=== PATIENT | male | born 1935 | race Caucasian/White ===

== ENCOUNTER 2020-08-16 10:57 | Emergency (ER) | payer MEDICARE ==
[~2020-08-16] VITALS: Ht 185.4 cm; Wt 63.5 kg
[2020-08-16] MEDS ORDERED: PROSCAR 5MG TABL5 M1 PO (11:11)
[2020-08-16] MEDS ORDERED: PLAVIX 75 MG TA75 MG PO (11:11)
[2020-08-16] MEDS ORDERED: ALLOPURINOL 10100 M3 PO (11:11)
[2020-08-16] MEDS ORDERED: BROVANA15 MCG/2 M INH (11:12)
[2020-08-16] MEDS ORDERED: TOPROL XL50 MG PO (11:12)
[2020-08-16] MEDS ORDERED: MICARDIS 80 MG80 MG PO (11:12)
[2020-08-16] MEDS ORDERED: PULMICORT0.5 MG/2 M INH (11:12)
[2020-08-16 11:25] LABS: ABSOLUTE EOSINOPHILS 0.3 thou/uL (0.0-0.7); ABSOLUTE LYMPHOCYTES 1.1 thou/uL (0.8-5.3); ABSOLUTE MONOCYTES 0.9 thou/uL (0.0-1.2); ABSOLUTE NEUTROPHILS 5.5 thou/uL (1.6-8.1); BASOPHILS 0.2 %; EOSINOPHILS 3.5 %; HEMATOCRIT 35.4 % (42.0-52.0); HEMOGLOBIN 11.4 gm/dL (14.0-18.0); LYMPHOCYTES 14.4 %; MCHC 32.3 g/dL (28.0-37.0); MCV 98.9 fL (80.0-100.0); MONOCYTES 11.7 %; MPV 9.4 fl. (7.2-11.1); NUCLEATED RBCS 0 /100WBC; PLATELET COUNT* 283 thou/uL (150-400); POLYS 70.2 %; RBC 3.58 mil/uL (4.50-6.00); RDW-CV 16.3 % (10.5-14.5); WBC 7.8 thou/uL (4.0-11.0)
[2020-08-16 11:31] LABS: CALCIUM 8.4 mg/dL (8.5-10.1); CREATININE 1.3 mg/dL (0.6-1.3); POTASSIUM 4.6 mmol/L (3.5-5.1)
[2020-08-16 11:35] LABS: APTT 28.8 Seconds (25.0-31.3); PROTIME 10.9 Seconds (9.20-11.50)
[2020-08-16 11:36] LABS: ALBUMIN 3.2 g/dL (3.4-5.0); TOTAL BILIRUBIN 0.2 mg/dL (<0.1-1.0); TOTAL PROTEIN 6.7 g/dL (6.4-8.2)
[2020-08-16] MEDS ORDERED: ZANAFLEX4 MG PO (12:34)
[2020-08-16] MEDS ORDERED: KEFLEX500 M1 PO (12:34)
[2020-08-16 12:47] VITALS: BP 153/56
--- NOTE | 2020-08-16 14:24 | EKG ---
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1935 Requested By: Teresa Coats Order Number: [id number] MD: Richard Briceño Measurements Intervals [place] Rate: 61 P: 21 CT: 175 QRS: -56 QRSD: 97 T: 66 QT: 428 QTc: 431 Interpretive Statements Sinus rhythm Probable left atrial enlargement Left anterior fascicular block RSR' in V1 or V2, right VCD or RVH Baseline wander in lead(s) V2 No previous ECG available for comparison Electronically Signed On 08-16-2020 14:24:14 [employer] SERV[employer] TECHNICIAN by Richard Briceño [email or web address] <ELECTRONICALLY SIGNED> By: Richard Briceño MD, [facility] 08/16/20 1424 1116 1116 Richard Briceño MD, [facility] /EPI
== END 2020-08-16 12:48 | disposition home or self-care (01) ==
LOC: M.ERS 10:57
PROVIDERS: Nurse Practitioner Family
DX: S01.111A Laceration without foreign body of right eyelid and periocular area, initial encounter (principal); S16.1XXA Strain of muscle, fascia and tendon at neck level, initial encounter; I10 Essential (primary) hypertension; M10.9 Gout, unspecified; I25.10 Atherosclerotic heart disease of native coronary artery without angina pectoris; Z88.8 Allergy status to other drugs, medicaments and biological substances; Z79.899 Other long term (current) drug therapy; Z79.01 Long term (current) use of anticoagulants; Z95.0 Presence of cardiac pacemaker; W01.0XXA Fall on same level from slipping, tripping and stumbling without subsequent striking against object, initial encounter; Y93.89 Activity, other specified; Y92.89 Other specified places as the place of occurrence of the external cause; Y99.9 Unspecified external cause status

== ENCOUNTER 2021-03-30 21:05 | Emergency (ER) | payer MEDICARE ==
[~2021-03-30] VITALS: Ht 185.4 cm; Wt 69.8 kg
[~2021-03-30 21:05] MED LIST: ALLOPURINOL 10100 M3 PO; BROVANA15 MCG/2 M INH; KEFLEX500 M1 PO; MICARDIS 80 MG80 MG PO; PLAVIX 75 MG TA75 MG PO; PROSCAR 5MG TABL5 M1 PO; PULMICORT0.5 MG/2 M INH; TOPROL XL50 MG PO; ZANAFLEX4 MG PO
[2021-03-30 23:19] LABS: ABSOLUTE EOSINOPHILS 0.3 thou/uL (0.0-0.7); ABSOLUTE LYMPHOCYTES 1.8 thou/uL (0.8-5.3); ABSOLUTE MONOCYTES 1.2 thou/uL (0.0-1.2); ABSOLUTE NEUTROPHILS 6.3 thou/uL (1.6-8.1); BASOPHILS 0.5 %; EOSINOPHILS 3.2 %; HEMATOCRIT 29.4 % (42.0-52.0); HEMOGLOBIN 9.9 gm/dL (14.0-18.0); LYMPHOCYTES 18.4 %; MCH 32.8 pg (26.0-34.0); MCHC 33.7 g/dL (28.0-37.0); MCV 97.4 fL (80.0-100.0); MONOCYTES 12.7 %; MPV 9.3 fl. (7.2-11.1); NUCLEATED RBCS 0 /100WBC; PLATELET COUNT* 267 thou/uL (150-400); POLYS 65.2 %; RBC 3.02 mil/uL (4.50-6.00); RDW-CV 16.5 % (10.5-14.5); WBC 9.6 thou/uL (4.0-11.0)
[2021-03-30 23:22] LABS: CALCIUM 8.1 mg/dL (8.5-10.1); CREATININE 1.8 mg/dL (0.6-1.3); POTASSIUM 5.9 mmol/L (3.5-5.1)
[2021-03-30 23:33] LABS: ALBUMIN 3.6 g/dL (3.4-5.0); TOTAL BILIRUBIN 0.1 mg/dL (<0.1-1.0); TOTAL PROTEIN 6.3 g/dL (6.4-8.2)
[2021-03-30 23:59] LABS: URINE BILIRUBIN NEGATIVE (Negative); URINE BLOOD NEGATIVE (Negative); URINE CLARITY CLEAR; URINE COLOR YELLOW; URINE GLUCOSE-RANDOM NEGATIVE (Negative); URINE KETONES NEGATIVE (Negative); URINE LEUKOCYTES-REFLEX NEGATIVE (Negative); URINE NITRITE-REFLEX NEGATIVE (Negative); URINE PROTEIN 2+ (Negative); URINE UROBILINOGEN 0.2 E.U./dl (0.2-1.0)
[2021-03-31 02:30] VITALS: BP 140/60
--- NOTE | 2021-03-31 09:46 | EKG ---
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1935 Requested By: Jaci Bradley Order Number: [id number] MD: Richard Briceño Measurements Intervals [place] Rate: 90 P: [place]: 217 QRS: -52 QRSD: 103 T: 85 QT: 377 QTc: 462 Interpretive Statements Atrial-paced complexes Ventricular bigeminy Borderline prolonged AK interval Incomplete RBBB and LAFB Consider right ventricular hypertrophy Baseline wander in lead(s) III,aVF Compared to ECG 08/16/2020 11:16:09 Ventricular premature complex(es) now present atrial paced beats noted Electronically Signed On 03-31-2021 9:45:44 CDT by Richard Briceño [email or web address] <ELECTRONICALLY SIGNED> By: Richard Briceño MD, [facility] 03/31/21 0945 33 33 Richard Briceño MD, [facility] /EPI
== END 2021-03-31 02:30 | disposition home or self-care (01) ==
LOC: M.ERS 21:05
PROVIDERS: Personal Emergency Response Attendant
DX: E87.5 Hyperkalemia (principal); Z20.822 Contact with and (suspected) exposure to COVID-19; I10 Essential (primary) hypertension; I25.10 Atherosclerotic heart disease of native coronary artery without angina pectoris; Z91.041 Radiographic dye allergy status; Z88.8 Allergy status to other drugs, medicaments and biological substances; Z90.5 Acquired absence of kidney